=== PATIENT | female | born 2000 | race African-American/Black ===

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

== ENCOUNTER 2018-01-02 01:07 | Emergency (ER) | payer OTHER ==
[2018-01-02 01:43] LABS: Bilirubin Negative (Negative); Blood, Urine Moderate (Negative); Clarity Hazy (Clear); Glucose, Urine (Dipstick) Negative (Negative); Leukocyte Negative (Negative); Nitrite Negative (Negative); Protein, Urine (Dipstick) Negative (Neg-Trace)
[2018-01-02 01:52] LABS: WBC/HPF 0-3 HPF (0-3)
[2018-01-02 01:53] LABS: Bacteria/HPF Rare-Few HPF (None Seen); Crystals/HPF 1+ AMORPH URATES HPF (Negative); Other Microscopic Description FEW CLUE CELLS
[2018-01-02] MEDS ORDERED: traMADol HCl 50 MG TAB ONE (01:53)
== END 2018-01-02 01:55 | disposition home or self-care (01) ==
LOC: BURERS 01:07
DX: S33.5XXA Sprain of ligaments of lumbar spine, initial encounter (principal); X58.XXXA Exposure to other specified factors, initial encounter
CPT/HCPCS: 81003; 81015; 99283

== ENCOUNTER 2018-02-20 20:50 | Emergency (ER) | payer OTHER | END 2018-02-21 00:56 | disposition home or self-care (01) | LOC: BURERS 20:50 | DX: J06.9 Acute upper respiratory infection, unspecified (principal) | CPT/HCPCS: 87081; 87430; 99283 ==

== ENCOUNTER 2018-07-21 17:17 | Emergency (ER) | payer OTHER ==
[2018-07-21 17:52] LABS: Bilirubin Negative (Negative); Blood, Urine Negative (Negative); Clarity Cloudy (Clear); Glucose, Urine (Dipstick) Negative (Negative); Leukocyte Large (Negative); Nitrite Negative (Negative); Protein, Urine (Dipstick) Negative (Neg-Trace); Specific Gravity, Urine 1.025 (1.005-1.030)
[2018-07-21 17:53] LABS: Pregu Control Background? CLEAR/WHITE (CLR/WHITE); Pregu Control Bar Appear? YES (CONTROL BAR); Specific Gravity 1.025 (1.002-1.036)
[2018-07-21 17:55] LABS: Pregnancy Test - Urine (BHCG) Negative (Negative)
[2018-07-21 17:57] LABS: RBC/HPF None Seen HPF (0-3); WBC/HPF 0-3 HPF (0-3)
[2018-07-21 17:58] LABS: Bacteria/HPF 1+ HPF (None Seen); Crystals/HPF None Seen HPF (Negative); Hyaline Casts/LPF NONE SEEN LPF (0-3 Hyaline); Other Casts/LPF None Seen LPF (0-3 Hyaline); Oval Fat Bodies/HPF None Seen HPF (None Seen); Renal Epithelial None Seen HPF (0-3); Sperm/HPF None Seen HPF (None Seen); Transitional Epithelial NONE SEEN HPF (0-3); Trichomonas/HPF None Seen HPF (None Seen); Yeast-All Forms None Seen HPF (None Seen)
[2018-07-21] MEDS ORDERED: Ketorolac Tromethamine 30 MG/ML VIAL ONE (18:02)
[2018-07-21] MEDS ORDERED: Ondansetron HCl/PF 4 MG/2 ML Vial ONE (18:02)
[2018-07-21 18:17] LABS: #Basophils 0.1 thou/uL (0.0-0.2); #Eosinphils 0.1 thou/uL (0.0-0.7); #Lymphocytes 2.4 thou/uL (1.20-3.40); #Monocytes 0.6 thou/uL (0.11-0.59); #Neutrophils 4.3 thou/uL (1.40-6.50); %Basophils 0.8 % (0.0-1.0); %Eosinophils 1.2 % (0.0-10.0); %Lymphocytes 32.4 % (28.0-48.0); %Monocytes 7.6 % (0.0-4.0); Hemoglobin 12.5 g/dL (12.0-16.0); Hypochromia SLIGHT = 6-15 cells (100X) (0-5/hpf); MDiff Complete? YES; Mean Corpuscular HGB CONC 33.6 g/dL (32.0-36.0); Mean Corpuscular Hemoglobin 24.1 pg (25.0-35.0); Mean Corpuscular Volume 71.8 fL (78.0-98.0); Mean Platelet Volume 6.4 fL (7.4-10.4); Microcytosis SLIGHT = 6-15 cells (100X) (0-5/hpf); Platelet Count 308 thou/uL (130-400); RBC Distribution Width 12.9 % (11.5-14.5); Red Blood Cell (RBC) Count 5.19 mill/uL (4.00-5.20); White Blood Cell (WBC) Count 7.5 thou/uL (4.8-10.8)
[2018-07-21 18:21] LABS: ALT (SGPT) 13 U/L (8-55); AST (SGOT) 19 U/L (5-34); Albumin 4.7 g/dL (3.5-5.0); Alkaline Phosphatase 82 U/L (40-150); Anion Gap 15 mmol/L (10-20); BUN (Urea Nitrogen) 7 mg/dL (7.0-18.7); Bilirubin, Total 0.6 mg/dL (0.2-1.2); Calc. Creatinine Clearance 0 mL/min (70-130); Carbon Dioxide 23 mmol/L (22-29); Chloride 107 mmol/L (98-107); Estimated GFR-MDRD Greater than 90; Globulin 3.5 g/dL (2.4-3.5); Glucose 85 mg/dL (70-105); Lipase 17 U/L (8-78); Potassium 3.6 mmol/L (3.5-5.1); Protein, Total 8.2 g/dL (6.0-8.3); Sodium 141 mmol/L (136-145)
== END 2018-07-21 19:11 | disposition home or self-care (01) ==
LOC: BURERS 17:17
DX: N39.0 Urinary tract infection, site not specified (principal)
CPT/HCPCS: 80053; 81003; 81015; 81025; 83690; 85025; 96361; 96374; 96375; J1885; J2405

== ENCOUNTER 2018-09-15 16:32 | Emergency (ER) | payer OTHER | END 2018-09-15 17:20 | disposition home or self-care (01) | LOC: BURERS 16:32 | DX: M77.9 Enthesopathy, unspecified (principal) | CPT/HCPCS: 99283 ==

== ENCOUNTER 2019-01-22 16:07 | Emergency (ER) | payer OTHER ==
[2019-01-22 16:39] LABS: Clarity Clear (Clear)
[2019-01-22 16:40] LABS: Bilirubin Negative (Negative); Blood, Urine Trace (Negative); Glucose, Urine (Dipstick) Negative (Negative); Leukocyte Moderate (Negative); Nitrite Negative (Negative); Protein, Urine (Dipstick) Negative (Neg-Trace); Specific Gravity, Urine 1.015 (1.005-1.030); Urobilinogen 0.2 mg/dL (0.2-1.0); pH, Urine 7.5 (5.0-9.0)
[2019-01-22 16:47] LABS: Bacteria/HPF Rare-Few HPF (None Seen); Crystals/HPF None Seen HPF (Negative); Hyaline Casts/LPF NONE SEEN LPF (0-3 Hyaline); Other Casts/LPF None Seen LPF (0-3 Hyaline); Oval Fat Bodies/HPF None Seen HPF (None Seen); RBC/HPF 0-3 HPF (0-3); Renal Epithelial None Seen HPF (0-3); Sperm/HPF None Seen HPF (None Seen); Transitional Epithelial NONE SEEN HPF (0-3); Trichomonas/HPF None Seen HPF (None Seen); WBC/HPF 0-3 HPF (0-3); Yeast-All Forms None Seen HPF (None Seen)
[2019-01-22] MEDS ORDERED: Azithromycin 250 MG TAB ONE (17:40)
[2019-01-22] MEDS ORDERED: cefTRIAXone\\ROCEPHIN 500 MG VIAL ONE (17:40)
[2019-01-22] MEDS ORDERED: Lidocaine 2% PF 5 ML VIAL ONE (17:41)
[2019-01-22 18:06] LABS: Hemoglobin 13.2 g/dL (12.0-16.0); Manual Diff?? YES; Mean Corpuscular HGB CONC 34.4 g/dL (32.0-36.0); Mean Corpuscular Hemoglobin 27.5 pg (25.0-35.0); Mean Corpuscular Volume 79.9 fL (78.0-98.0); Platelet Count 208 thou/uL (130-400); RBC Distribution Width 12.7 % (11.5-14.5); Red Blood Cell (RBC) Count 4.82 mill/uL (4.00-5.20); White Blood Cell (WBC) Count 8.9 thou/uL (4.8-10.8)
[2019-01-22 18:07] LABS: Band 0 % (5-11); Blast 0 % (0-0); Eosinophils 0 % (0-10); Lymphocytes 20 % (28-48); MDiff Complete? YES; Metamyelocyte 0 % (0-0); Monocytes 5 % (0-4); Myelocyte 0 % (0-0); Neutrophil 74 % (31-61); Nucleated RBC 0 % (0); Promyelocytes 0 % (0-0); Reactive Lymphocytes 0 % (0-10)
[2019-01-24 20:36] LABS: Chlamydia by PCR Not Detected (NotDetected); GC by PCR Not Detected (NotDetected)
== END 2019-01-22 17:50 | disposition home or self-care (01) ==
LOC: BURERS 16:07
DX: O23.512 Infections of cervix in pregnancy, second trimester (principal); Z3A.18 18 weeks gestation of pregnancy
CPT/HCPCS: 81003; 81015; 85025; 87086; 87480; 87491; 87510; 87591; 87660; 96372; J0696; J2001

== ENCOUNTER 2019-05-07 23:00 | Emergency (ER) | payer OTHER | END 2019-05-07 23:45 | disposition short-term general hospital (02) | LOC: BURERS 23:00 | DX: O9A.213 Injury, poisoning and certain other consequences of external causes complicating pregnancy, third trimester (principal); S30.1XXA Contusion of abdominal wall, initial encounter; W18.30XA Fall on same level, unspecified, initial encounter; Z3A.30 30 weeks gestation of pregnancy | CPT/HCPCS: 99284 ==

== ENCOUNTER 2019-10-08 23:56 | Emergency (ER) | payer OTHER ==
[2019-10-09] MEDS ORDERED: Ondansetron ODT 4 MG TAB ONE (00:59)
[2019-10-09 01:18] LABS: #Basophils 0.1 thou/uL (0.0-0.2); #Monocytes 0.8 thou/uL (0.11-0.59); #Neutrophils 5.7 thou/uL (1.40-6.50); %Basophils 0.7 % (0.0-1.0); %Eosinophils 0.6 % (0.0-10.0); %Lymphocytes 12.7 % (21.0-51.0); %Monocytes 10.3 % (0.0-10.0); %Neutrophils 75.6 % (42.0-75.0); Hemoglobin 13.1 g/dL (12.0-16.0); Mean Corpuscular HGB CONC 30.6 g/dL (32.0-36.0); Mean Corpuscular Hemoglobin 26.1 pg (27.0-31.0); Mean Corpuscular Volume 85.2 fL (78.0-98.0); Mean Platelet Volume 7.9 fL (7.4-10.4); Platelet Count 266 thou/uL (130-400); RBC Distribution Width 12.5 % (11.5-14.5); Red Blood Cell (RBC) Count 5.02 mill/uL (4.20-5.40); White Blood Cell (WBC) Count 7.5 thou/uL (4.8-10.8)
[2019-10-09 01:24] LABS: BHCG - Serum Negative (NEGATIVE)
[2019-10-09 01:25] LABS: Pregs Control Bar Appear? YES (CONTROL BAR)
[2019-10-09 01:26] LABS: Pregs Control Background? CLEAR/WHITE (CLR/WHITE)
[2019-10-09 01:30] LABS: ALT (SGPT) 12 U/L (8-55); AST (SGOT) 14 U/L (5-34); Albumin 4.3 g/dL (3.5-5.0); Alkaline Phosphatase 87 U/L (40-110); Anion Gap 15 mmol/L (10-20); BUN (Urea Nitrogen) 9 mg/dL (7.0-18.7); Bilirubin, Total 1.1 mg/dL (0.2-1.2); Calc. Creatinine Clearance 0 mL/min (70-130); Calcium 9.2 mg/dL (7.8-10.44); Carbon Dioxide 22 mmol/L (22-29); Chloride 107 mmol/L (98-107); Estimated GFR-MDRD Greater than 90; Globulin 3.2 g/dL (2.4-3.5); Glucose 147 mg/dL (70-105); Lipase 14 U/L (8-78); Potassium 3.6 mmol/L (3.5-5.1); Protein, Total 7.5 g/dL (6.0-8.3); Sodium 140 mmol/L (136-145)
== END 2019-10-09 02:04 | disposition home or self-care (01) ==
LOC: BURERS 23:56
DX: A08.4 Viral intestinal infection, unspecified (principal)
CPT/HCPCS: 36415; 80053; 83690; 84703; 85025; 99284; Q0162